=== PATIENT | female | born 1970 | race Caucasian/White ===

== ENCOUNTER 2017-03-10 08:03 | Emergency (ER) | payer BC ==
[~2017-03-10] VITALS: Ht 160 cm; Wt 63.5 kg
[~2017-03-10 08:03] MED LIST: ALBU8.5H2 IH; ALVESCO IH; ASP81TEC PO; AZTH250C PO; BUDE6HFA IH; CALC-404 PO; CARAFATE PO; CEFD300C3 PO; IRRITABLE BOWEL MED; LEVO500T69 PO; LRZ1T PO; METO25TA PO; MMT17NA NS; MNTL10T PO; MULT1CAP27 PO; NF-ESOM40C PO; OMEP20CA6 PO; OSLT75C PO; OXYC-12 PO; PANT20TA2 PO; PHEN200T27 PO; PRED10TA PO; SPIR25TA3 PO; SULF-222 PO; [UNRECOGNIZED DRUG - REMARK]
--- NOTE | 2017-03-10 08:44 | ED Headache ---
General Chief Complaint: General Problems/Pain Stated Complaint: HEADACHE, TOE NUMBNESS Nursing Triage Note: PT REPORTS THAT SHE WOKE UP YESTERDAY WITH A H/A AND TODAY WOKE UP WITH L 2 AND 3 TOE NUMBNESS. SHE DENIES TRIPP TODAY. SHE DOES REPORT THAT SHE IS TO BE TAKING TOPROL, BUT HASNT FOR SEVERAL MONTHS. Nursing Sepsis Screen: No Definite Risk Source: patient Exam Limitations: no limitations History of Present Illness Time seen by provider: 08:29 Initial Comments Patient presents with concern that she had a headache in the low occiput bilateral yesterday that lasted for about an hour but resolved with Advil. She states she does not have a history of headaches. She did however this morning wake up with a little numbness in her second digit of her left foot that concerned her that it might be related to her headache. She has not had a headache since yesterday. She states ever since having her hysterectomy she's had a little bit of stress incontinence on occasion but no other incontinence, saddle anesthesia, paralysis or paresthesias under the other than the toe mentioned today. She does have diabetes diet controlled with an last A1c in the mid 5%. She also has a history of SVT and was told to take a daily aspirin and beta elizabeth that she has not taken either of these medicines and months and has not felt any palpitations, syncope, slurred speech, facial distortion, nor has anyone around her commented on this. She has had no recent trauma or difficulty walking. She states she did have a drink yesterday and is only a social drinker. She quit smoking over a decade ago and has never used IV drugs of abuse. Allergies and Home Medications Allergies Coded Allergies: vancomycin (Unverified Allergy, Intermediate, HIVES, 05/19/14) nitrofurantoin (Unverified Allergy, Mild, 10/19/10) Sulfa (Sulfonamide Antibiotics) (Unverified Allergy, Unknown, 08/10/10) ciprofloxacin (Unverified Allergy, Unknown, 05/19/14) diphenhydramine (Unverified Allergy, Unknown, 05/19/14) Home Medications No Active Prescriptions or Reported Meds Constitutional: No chills, No dizziness, No fever, No malaise, weight gain (25 # in past year) Eyes: Denies Blindness, Denies Blurred Vision Ears, Nose, Mouth, Throat: denies ear pain, denies ear discharge Respiratory: No cough, No short of breath, No wheezing Gastrointestinal: No abdominal pain, No constipation, No diarrhea, No nausea Genitourinary: No dysuria, No frequency Musculoskeletal: back pain (chronic), No joint pain Skin: No pruritus, No rash Psychiatric/Neurological: See HPI Past Axadgyy-Onjaub-Frwmvt Hx Patient Social History Alcohol Use: Occasionally Uses Recreational Drug Use: No Smoking Status: Former Smoker Type Used: Cigarettes 2nd Hand Smoke Exposure: No Recent Foreign Travel: No Contact w/Someone Who Travel: No Recent Infectious Disease Expo: No Recent Hopitalizations: No Immunizations Up To Date Date of Influenza Vaccine: Jul 28, 2012 Surgeries HX Surgeries: Yes (ENDOMETRIAL) Surgeries: Gallbladder, Hysterectomy, Oophorectomy Respiratory Hx Respiratory Disorders: No Cardiovascular Hx Cardiac Disorders: Yes (PULMONARY HTN, TACHYCARDIA) Neurological Hx Neurological Disorders: No Reproductive System Hx Reproductive Disorders: Yes (ENDOMETRIAL ABLATION MARCH 2008) Sexually Transmitted Disease: No HIV/AIDS: No Genitourinary Hx Genitourinary Disorders: Yes Genitourinary Disorders: Bladder Infection Gastrointestinal Hx Gastrointestinal Disorders: Yes (PERFORATED BOWEL 2012) Musculoskeletal Hx Musculoskeletal Disorders: No Endocrine Hx Endocrine Disorders: Yes Endocrine Disorders: Diabetes, Non-Insulin dep HEENT HX ENT Disorders: No Cancer Hx Cancer: No Psychosocial Hx Psychiatric Problems: No Integumentary HX Skin/Integumentary Disorder: No Blood Transfusions Hx Blood Disorders: No Physical Exam Vital Signs Vital Sign - Last 12Hours 03/10/17 08:29 Temp 98.2 Pulse 90 Resp 16 B/P (MAP) 123/75 Pulse Ox 98 O2 Delivery Room Air Capillary Refill : Less Than 3 Seconds General Appearance: WD/WN, no apparent distress HEENT: PERRL/EOMI, normal ENT inspection, pharynx normal Neck: non-tender, full range of motion, supple, normal inspection Cardiovascular: normal peripheral pulses, regular rate, rhythm, no edema, no murmur Respiratory: chest non-tender, lungs clear, normal breath sounds Back: normal inspection, no vertebral tenderness Extremities: normal range of motion, non-tender, normal inspection, no pedal edema, no calf tenderness, normal capillary refill Psychiatric: alert, oriented x 3 Crainal Nerves: normal hearing, normal speech, PERRL Coordination/Gait: normal gait Motor/Sensory: no motor deficit, other (difficulty locating pinpoint sensation in left foot 2-3 digits, Kinesthesia intact) Reflexes: 2+ Knee (R), 2+ Knee (L), 2+ Ankle (R), 2+ Ankle (L) Skin: normal color, warm/dry Progress/Results/Core Measures Results/Orders Vital Signs/I&O Vital Sign - Last 12Hours 03/10/17 08:29 Temp 98.2 Pulse 90 Resp 16 B/P (MAP) 123/75 Pulse Ox 98 O2 Delivery Room Air Blood Pressure Mean: 91 Progress Note : Time: 08:44 Progress Note This patient presents with a new onset of paresthesia in her left second toe which may be consistent with her history of chronic back pain and radiculopathy versus possible effect from her 5-6 years of diabetes which is under good control. She will probably respond well to NSAIDs and follow-up with her primary care physician in [facility] in the next week or 2. Departure Impression Impression: Primary Impression: Paresthesia of left foot Additional Impression: Headache Qualified Codes: R51 - Headache Disposition: 01 HOME, SELF-CARE Condition: Stable Departure-Patient Inst. Decision time for Depature: 08:46 Referrals: NO,LOCAL PHYSICIAN (PCP) Primary Care Physician Patient Instructions: Back Flexion Strengthening Exercises Add. Discharge Instructions: The numbness or tingling feeling in your toe could be due to your diabetes are more likely for your chronic back pain just being exacerbated by recent events. You'll probably respond well to heat along your back and Advil or Tylenol as needed. If you're noticing new or worsening symptoms such as nausea, fever, incontinence of bowel or bladder, numbness in the saddle region or other worrisome symptoms you should return to the ER. Otherwise you should follow up with your primary care physician in the next 1-2 weeks. All discharge instructions reviewed with patient and/or family. Voiced understanding. Scripts No Active Prescriptions or Reported Meds DIEGO LANDAVERDE March 10, 2017 08:44
[2017-03-10 09:18] VITALS: BP 123/75
== END 2017-03-10 09:18 | disposition home or self-care (01) ==
LOC: EDUNIT# 08:03 → ER 08:05
DX: R51 Headache (principal); R20.2 Paresthesia of skin; I10 Essential (primary) hypertension; E11.9 Type 2 diabetes mellitus without complications; Z87.891 Personal history of nicotine dependence
CPT/HCPCS: 99281